=== PATIENT | male | born 1995 | race American Indian/Alaskan Native ===

== ENCOUNTER 2019-10-20 10:58 | Emergency (ER) | payer SELFPAY ==
[2019-10-20 11:41] VITALS: BP 150/95
--- NOTE | 2019-10-20 13:02 | Emergency Department Report ---
ED ENT HPI - General Chief complaint: Dental/Oral Stated complaint: TOOTH ACHE Time Seen by Provider: 10/20/19 12:54 Source: patient Mode of arrival: Ambulatory Limitations: No Limitations - History of Present Illness Initial comments: Patient is a 24-year-old male presents emergency room with complaints of left lower dental pain and swelling that began yesterday. He states he has not seen a dentist since childhood. He is able to tolerate p.o. intake and secretions. He denies any nausea, vomiting, diarrhea, fever, chills, difficulty swallowing. He denies any past medical history. He denies any allergies to medications. - Related Data Previous Rx's Medication Instructions Recorded Last Taken Type Ibuprofen [Motrin 600 MG tab] 600 mg PO Q8H PRN #14 tablet 10/20/19 Unknown Rx Penicillin Vk [Veetids TAB] 500 mg PO QID 7 Days #56 tablet 10/20/19 Unknown Rx Allergies Allergy/AdvReac Type Severity Reaction Status Date / Time No Known Allergies Allergy Verified 10/20/19 11:38 ED Dental HPI - General Chief complaint: Dental/Oral Stated complaint: TOOTH ACHE Time Seen by Provider: 10/20/19 12:54 Source: patient Mode of arrival: Ambulatory Limitations: No Limitations - Related Data Previous Rx's Medication Instructions Recorded Last Taken Type Ibuprofen [Motrin 600 MG tab] 600 mg PO Q8H PRN #14 tablet 10/20/19 Unknown Rx Penicillin Vk [Veetids TAB] 500 mg PO QID 7 Days #56 tablet 10/20/19 Unknown Rx Allergies Allergy/AdvReac Type Severity Reaction Status Date / Time No Known Allergies Allergy Verified 10/20/19 11:38 ED Review of Systems ROS: Stated complaint: TOOTH ACHE Other details as noted in HPI Comment: All other systems reviewed and negative ED Past Medical Hx - Past Medical History Previous Medical History?: No - Surgical History Past Surgical History?: No - Medications Home Medications: Home Medications Medication Instructions Recorded Confirmed Last Taken Type Ibuprofen [Motrin 600 MG tab] 600 mg PO Q8H PRN #14 tablet 10/20/19 Unknown Rx Penicillin Vk [Veetids TAB] 500 mg PO QID 7 Days #56 tablet 10/20/19 Unknown Rx ED Physical Exam - General Limitations: No Limitations General appearance: alert, in no apparent distress - Head Head exam: Present: atraumatic, normocephalic - Eye Eye exam: Present: normal appearance - ENT ENT exam: Present: normal orophraynx, mucous membranes moist, other (there is a cracked tooth with a dental carry present to the left lower back molar, there is associated edema and induration of the adjacent gumline, no fluctuance, no drainage, there is a small amount of edema to the left jaw, uvula is midline, no uvular edema or deviation, no trismus, no tongue elevation, no muffled voice, tolerating secretions) - Neurological Exam Neurological exam: Present: alert, oriented X3 - Psychiatric Psychiatric exam: Present: normal affect, normal mood - Skin Skin exam: Present: warm, dry, intact ED Course Vital Signs 10/20/19 11:39 Temperature 98.2 F Pulse Rate 59 L Respiratory 18 Rate Blood Pressure 150/95 O2 Sat by Pulse 98 Oximetry ED Medical Decision Making - Medical Decision Making Patient is a 24-year-old male presents emergency room with complaints of left lower dental pain and swelling that began yesterday. He states he has not seen a dentist since childhood. He is able to tolerate p.o. intake and secretions. He denies any nausea, vomiting, diarrhea, fever, chills, difficulty swallowing. He denies any past medical history. He denies any allergies to medications. VSS. on exam: there is a cracked tooth with a dental carry present to the left lower back molar, there is associated edema and induration of the adjacent gumline, no fluctuance, no drainage, there is a small amount of edema to the left jaw, uvula is midline, no uvular edema or deviation, no trismus, no tongue elevation, no muffled voice, tolerating secretions. Examination consistent with dental abscess. Patient given prescription for penicillin VK and ibuprofen. advised pt please take medication as prescribed. Please gargle with warm salt water. Follow-up with a dentist. It is very important that you follow-up with a dentist for reexamination and for a permanent solution. Return to emergency room for any new or worsening symptoms. Critical care attestation.: If time is entered above; I have spent that time in minutes in the direct care of this critically ill patient, excluding procedure time. ED Disposition Clinical Impression: Infected dental carries, Dental abscess, Cracked tooth Disposition: TO HOME OR SELFCARE Is pt being admited?: No Does the pt Need Aspirin: No Condition: Stable Instructions: Dental Abscess (ED), Dental Caries (ED) Additional Instructions: Please take medication as prescribed. Please gargle with warm salt water. Follow-up with a dentist. It is very important that you follow-up with a dentist for reexamination and for a permanent solution. Return to emergency room for any new or worsening symptoms. Prescriptions: Ibuprofen [Motrin 600 MG tab] 600 mg PO Q8H PRN #14 tablet PRN Reason: Pain Penicillin Vk [Veetids TAB] 500 mg PO QID 7 Days #56 tablet Referrals: [facility] [Outside] - 2-3 Days [facility] [Outside] - 2-3 Days Time of Disposition: 13:00 Print Language: FINNISH
== END 2019-10-20 13:07 | disposition home or self-care (01) ==
LOC: ED 10:58
DX: K02.9 Dental caries, unspecified (principal); K03.81 Cracked tooth; Z79.1 Long term (current) use of non-steroidal anti-inflammatories (NSAID); Z79.2 Long term (current) use of antibiotics
CPT/HCPCS: 99282